=== PATIENT | male | born 1985 | race Caucasian/White ===

== ENCOUNTER → 2018-08-24 07:18 | Outpatient (CLI) | payer OTHER, SELFPAY ==
--- NOTE | 2018-08-24 07:24 | MRI_ITS ---
STUDY: MRI LUMBAR SPINE WITHOUT CONTRAST REASON FOR EXAM: Male, 32 years old. sciatica, lumbar strain, numbness/pain right leg, injury 08/04/18. TECHNIQUE: Standardized fat and water weighted pulse sequences were obtained in the sagittal and axial planes. COMPARISON: None FINDINGS: T12-L1: Normal endplates. Normal disc height, hydration and morphology. Normal bilateral facet joints. Normal central canal and bilateral lateral recesses. Normal bilateral intervertebral neural foramina. Normal lumbar lordosis. There is no substantial scoliosis. Normal conus medullaris that terminates at the L1 L1-2: Normal endplates. Normal disc height, hydration and morphology. Normal bilateral facet joints. Normal central canal and bilateral lateral recesses. Normal bilateral intervertebral neural foramina. L2-3: Normal endplates. Normal disc height, hydration and morphology. Normal bilateral facet joints. Normal central canal and bilateral lateral recesses. Normal bilateral intervertebral neural foramina. L3-4: Normal endplates. Normal disc height, hydration and morphology. Normal bilateral facet joints. Normal central canal and bilateral lateral recesses. Normal bilateral intervertebral neural foramina. L4-5: Normal endplates. Normal disc height, hydration and morphology. Normal bilateral facet joints. Normal central canal and bilateral lateral recesses. Normal bilateral intervertebral neural foramina. L5-S1: Normal endplates. Normal disc height, hydration and morphology. Normal bilateral facet joints. Normal central canal and bilateral lateral recesses. Normal bilateral intervertebral neural foramina. Normal visualized sacral ala. Normal visualized paraspinous soft tissue structures. MRI/Spine Lumbar (Routine) IMPRESSION: Normal unenhanced MR examination of the lumbar spine. Electronically Signed: Rosemary Caraballo MD at 8:38 EST Tel , Service support ,
== END ==
PROVIDERS: Family Provider Family Medicine; PCP Family Medicine
DX: M54.31 Sciatica, right side (principal); S33.5XXA Sprain of ligaments of lumbar spine, initial encounter
CPT/HCPCS: 72148

== ENCOUNTER 2019-03-19 20:02 | Emergency (ER) | payer OTHER, SELFPAY ==
[2019-03-19 20:10] VITALS: BP 149/86; RESP 17; TEMP 36.3; O2SAT 99; BMI 24.4
[2019-03-19] MEDS: DiphenhydrAMINE 50 MG/ML Syringe 25 MG IV (20:57)
[2019-03-19] MEDS: Metoclopramide 10 MG/2 ML Vial 5 MG IV (20:57)
[2019-03-19] MEDS: 0.9% Normal Saline 1,000 ML 999 ML IV (20:57)
--- NOTE | 2019-03-19 21:39 | CT_ITS ---
HISTORY: HEADACHE LT SIDED X 5 DAYS TECHNIQUE: CT angiogram of the brain was performed without and with IV contrast. 3D reconstructions were reviewed to aid in vascular evaluation. A radiation dose optimization technique was used for this scan. IV Contrast dosage and agent: 100 ml [id number] Number of images including paperwork: [id number] COMPARISON: None CTA head: FINDINGS: BRAIN PARENCHYMA: No acute hemorrhage or mass. No definite acute infarct; MRI more sensitive. EXTRA-AXIAL SPACES: No acute hemorrhage. VENTRICULAR SYSTEM: No hydrocephalus. PARANASAL SINUSES AND MASTOIDS: No air-fluid level in the imaged extent. ORBITS: Unremarkable imaged extent. SKELETON AND SOFT TISSUES: Calvarium intact. ASPECTS score: Not applicable INTERNAL CAROTID ARTERIES: No significant stenosis of the intracranial segments. 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 No significant stenosis of the visualized segments. ANTERIOR COMMUNICATING ARTERY: Present. MIDDLE CEREBRAL ARTERIES: No significant stenosis of the visualized segments. VERTEBRAL ARTERIES: No significant stenosis of the intradural/visualized segments. BASILAR ARTERY: No significant stenosis. POSTERIOR CEREBRAL ARTERIES: No significant stenosis of the visualized segments. POSTERIOR COMMUNICATING ARTERIES: Present. No evidence of intracranial aneurysm or vascular malformation. CT/CTA Head W/WO Contrast IMPRESSION: No arterial occlusion, aneurysm or vascular malformation. Individualized dose optimization techniques were used for this CT. at 0008 Reported and signed by: Anika Samuel MD Electronically Signed: Anika Samuel MD at 0:08 EDT Tel , Service support ,
--- NOTE | 2019-03-19 23:41 | ED.VISSUMM ---
- ER Visit Summary Date of Service: 03/19/19 Chief Complaint: Headache History of Present Illness: The patient is a 33 M presenting with headache. Patient states this started today. It was gradual in onset. He has history of previous migraine headaches and this feels similar. He tried ibuprofen, Excedrin, Benadryl at home. He denies fever. Denies injury. He has nausea and vomiting. He has light sensitivity. Denies other complaints. Physical Examination: Vitals are stable. Patient is afebrile. Alert no acute distress. HEENT exam is unremarkable. Neck is supple. No meningismus Lungs are clear and equal bilaterally. Heart is regular rate and rhythm. Abdomen is soft nontender nondistended. Extremities are unremarkable. Skin is warm and dry. No focal neurologic deficit. Remainder of exam is unremarkable. Emergency Department Course and Treatment: Patient was given Reglan, Benadryl, IV fluids. CTA head shows no arterial occlusion, aneurysm or vascular malformation. Patient continues to have headache and was given Toradol IV, sumatriptan subcutaneously. On reevaluation, patient feels improved. He is advised to follow-up with his primary care physician. Advised to return to ED for worsening complaints. Disposition: Discharge home Impression: Headache This note was generated with [employer] dictation software. It may contain incorrect words, spelling, and punctuation that were not noted in review of the chart prior to signing ED Disposition - Plan for ED Patient: Instructions: HEADACHE, Unspecified Referrals: Ruiz Hernandez MD [Primary Care Provider] -
[2019-03-20] MEDS: Ketorolac 30 MG/ML Syringe IV (00:35)
[2019-03-20] MEDS: SUMAtriptan 6 MG/0.5 ML Vial SC (00:36)
[2019-03-20 00:39] VITALS: BP 147/95; PULSE 57; RESP 15; O2SAT 98
--- NOTE | 2019-03-20 01:00 | ED.DEP ---
ED Disposition - Plan for ED Patient: Instructions: HEADACHE, Unspecified Referrals: Ruiz Hernandez MD [Primary Care Provider] -
[2019-03-20 01:24] VITALS: BP 118/89; PULSE 66; RESP 15; O2SAT 100
== END 2019-03-20 01:25 | disposition home or self-care (01) ==
LOC: ED 20:39
PROVIDERS: Emergency Provider Emergency Medicine; Family Provider Family Medicine; PCP Family Medicine
DX: R51 Headache (principal); R11.2 Nausea with vomiting, unspecified
CPT/HCPCS: 70496; 99282; J7030; Q9967; A4216; J3030